=== PATIENT | male | born 1990 | race Caucasian/White ===

== ENCOUNTER 2018-07-24 06:50 | Day surgery (SDC) | payer BC ==
[~2018-07-24] VITALS: Ht 175.3 cm; Wt 89.4 kg
[~2018-07-24 06:50] MED LIST: BENICAR20 MG PO; CARTIA XT120 MG PO; ENABLEX7.5 MG; IBUPROFEN800 MG PO; SIMVASTATIN20 MG PO; TRIAMTERENE-HC1 EAC3 PO
[2018-07-24] MEDS ORDERED: MULTIVITAMINS1 EAC7 PO (07:07)
[2018-07-24] MEDS ORDERED: FISH OIL 1,0001 EAC2 NG (07:08)
[2018-07-24] MEDS ORDERED: MAGNESIUM250 MG PO (07:08)
--- NOTE | 2018-07-24 12:31 | NUR ---
07/24/18 1231 Mary Gallardo 1215- PT ARRIVES TO PACU EASILY AROUSABLE TO VOICE. INSTANTLY FALLS BACK TO SLEEP. RESP EVEN AND UNLABORED. OXYGEN SAT MID TO HIGH 90'S ON 10L VIA MASK. 1228- PT SITTING UP IN BED DRINKING WATER. TOLERATING WELL.
[2018-07-24] MEDS ORDERED: IBUPROFEN600 MG PO (12:40)
[2018-07-24] MEDS ORDERED: MAPAP325 MG PO (12:41)
[2018-07-24] MEDS ORDERED: OXYCODON-ACETA1 EAC2 PO (12:41)
--- NOTE | 2018-07-24 13:09 | NUR ---
PT ALERT, ORIENTED AND SUPPORTED BY HIS KASSANDRA. I SENSE THAT PT IS A PERSON THAT MAY PUSH THE LIMITS OF HIS RECOVERY AND PAY LITTLE ATTENTION TO INSTRUCTION. I PRAY FOR A QUICK RECOVERY, STAFF INTO FINISH HIS PREPERATION PLEASANT VISIT THOUGH. WILL FOLLOW NEEDED
--- NOTE | 2018-07-24 13:12 | NUR ---
PUDDING GIVEN. PATIENT EATS THE PUDDING AND TOLERATES THAT WELL. PRN FOR PAIN GIVEN.
--- NOTE | 2018-07-24 14:01 | NUR ---
PT RESTING IN BED WATCHING TV WITH SPOUSE AT BEDSIDE. PT RESP EVEN AND UNLABORED, ABOVE 94% ON RA. PT STATES PAIN 1/10 AND DENIES NAUSEA. PT REQUESTS MORE COFFEE AND WATER AND STATES HE IS "HUNGRY." LUNCH OFFERED.
--- NOTE | 2018-07-24 15:27 | NUR ---
[id number]: DC CRITERIA MET. PT READY TO DC. DC INSTRUCTIONS GIVEN IN PRESENCE OF PT AND SPOUSE. PAIN MEDICATION SCRIPT GIVEN TO PT IN DC FOLDER. PT DC'S FROM DS RM 3 AMBULATORY HOME WITH SPOUSE.
--- NOTE | 2018-07-26 11:06 | OR ---
[facility] [address], [place] [address] Signed DATE OF OPERATION: 07/24/2018 SURGEON: Mayda Fox MD PREOPERATIVE DIAGNOSIS: Right inguinal hernia. POSTOPERATIVE DIAGNOSIS: Right direct inguinal hernia. PROCEDURES: 1. Repair of right inguinal hernia. 2. Implantation of Prolene mesh underlay technique. ANESTHESIA: General; Mayda Keating CRNA and local 20 mL of 0.25% Marcaine with epinephrine. 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 Aye Bermudez with findings of a right inguinal hernia. The patient was doing some of his hanging exercises and noted rather severe and unrelenting right groin pain as well as some right-sided abdominal pain. At rest, he is not having too much pain, but with any exertion at all, he has severe pain. An ultrasound was performed, which showed upon inspection a right inguinal hernia as well as an area of possibly suggestive of disruption of some transversus abdominis muscle from the right rectus sheath well cephalad from the inguinal area. Clinical examination reveals no sign of hernia and the possibly injured muscle, but clearly a hernia in the right groin area. He is admitted at this time to undergo right inguinal hernia repair. He understands as does his , the risks of bleeding, infection, recurrent hernia, chronic pain problems, failure to cure his pain problem particularly cephalad to the area of inguinal hernia and other unforeseen complications. Understanding this, he wished to proceed. FINDINGS: A very small incision was maintained. The cord structures were normal. There was no sign of indirect hernia sac, but attenuated fibers of the transversalis indeed. Complete visualization of the iliac vein and surrounding structures. Repair of the floor included implantation of Prolene mesh in underlay technique. A good secure repair has been afforded. There were no complications. Electronically Signed By: MAYDA FOX MD 07/26/18 1106 PATIENT NAME: LYNN MARINO OPERATIVE REPORT DATE OF : 86 REPORT #: [id number] PHYSICIAN: MAYDA FOX MD PCP: DEE SOMMER PAC REPORT IS CONFIDENTIAL AND NOT TO BE RELEASED WITHOUT AUTHORIZATION [facility] [address], [place] [address] Signed DESCRIPTION OF PROCEDURE: The patient was brought to the operating room and given a general anesthetic by the senior physical therapist. Preoperative antibiotic Ancef was given. Sequential compression device stockings used and heparin subcutaneously administered. The lower abdomen was clipped and prepared with a chlorhexidine solution and draped sterilely. Palpation of the pubic tubercle on the right was undertaken and cephalad to that. A small incision was made along the line of skin tension. Dissection was carried through the skin with a #15 blade and Marjorie's layer was divided with electrocautery. Gelpi retractor was placed and the external oblique dissected free from the overlying Marjorie's layer. The external oblique was incised along its fibers revealing the underlying cord structures. Hemostats were applied to the fascial edges and using blunt and sharp dissection, the cord structures were freed from the overlying external oblique. There was no large dominant ilioinguinal nerve to dissect free that had been spared and the dissection was far medial in this. The cord was bluntly freed from the floor of the canal and encircled with a [place] drain. A very small incision was maintained throughout, but good visualization, given his ideal body habitus was maintained. Once the cord retracted, the cremasteric muscle fibers were divided with electrocautery in search of an indirect hernia sac. There was no such sac, but a fibrotic processus vaginalis would be expected. The floor of the inguinal canal itself was completely attenuated. Indeed, the iliac vein and its branches could be identified quite easily. An Allis clamp was applied to the tendon of the transversus abdominis and towards this pubic tubercle, the attenuated fibers of the fascia of transversalis was incised with electrocautery. Using blunt dissection, the properitoneal space was developed. A segment of Prolene mesh was cut to an elliptical configuration and secured with meticulous care. An underlay technique with 2-0 Prolene suture. A defect was cut in the graft to accommodate the cord. The tails of graft were secured laterally as well. There was no sign of excessive tension on the area of the cord and good flow was maintained. A 20 mL of 0.25% Marcaine with epinephrine injected locally. The cord was replaced in the canal. The external oblique reapproximated with running 2-0 Vicryl suture. Marjorie's layer was reapproximated with interrupted 2-0 Vicryl and skin closed with running subcuticular 3-0 Vicryl. Steri-Strips were applied. A photograph was taken of the repair. It is noted. The patient tolerated the procedure well. Blood loss was nil. There were no complications. Sponge, needle, and instrument counts were correct x3. Electronically Signed By: MAYDA FOX MD 07/26/18 1106 PATIENT NAME: LYNN MARINO OPERATIVE REPORT DATE OF : 86 REPORT #: [id number] PHYSICIAN: MAYDA FOX MD PCP: DEE SOMMER PAC REPORT IS CONFIDENTIAL AND NOT TO BE RELEASED WITHOUT AUTHORIZATION [place] [address] [place], [place] [address] Signed MD CHETAN Herzog/RAHULL /[id number] cc: Aye Bermudez MD Copies: AYE BERMUDEZ MD ~ Electronically Signed By: MAYDA FOX MD 07/26/18 1106 PATIENT NAME: LYNN MARINO OPERATIVE REPORT DATE OF : 86 REPORT #: [id number] PHYSICIAN: MAYDA FOX MD PCP: DEE SOMMER PAC REPORT IS CONFIDENTIAL AND NOT TO BE RELEASED WITHOUT AUTHORIZATION
== END 2018-07-24 15:10 | disposition home or self-care (01) ==
LOC: DS 06:50
PROVIDERS: Surgery
PROC: 0YU50JZ Supplement Right Inguinal Region with Synthetic Substitute, Open Approach (ICD-10-PCS; principal; 2018-07-24 09:45)
DX: K40.90 Unilateral inguinal hernia, without obstruction or gangrene, not specified as recurrent (principal); Z23 Encounter for immunization; Z79.899 Other long term (current) drug therapy
CPT/HCPCS: 00830; C1781; J0690; J1100; J1644; J1885; J2250; J2405; J2704; J2765; J3010; J7120